=== PATIENT | female | born 1960 | race Caucasian/White ===

== ENCOUNTER 2019-07-31 17:39 | Emergency (ER) | payer MEDICARE ==
[~2019-07-31] VITALS: Ht 165.1 cm; Wt 79.5 kg
--- NOTE | 2019-07-31 18:46 | NUR ---
Pt c/o mild discomfort to throat with swallowing but was able to drink a full glass of water without s/s of difficulty
[2019-07-31 19:06] VITALS: BP 117/83
== END 2019-07-31 19:09 | disposition home or self-care (01) ==
LOC: ER 17:40
DX: R09.89 Other specified symptoms and signs involving the circulatory and respiratory systems (principal); Z88.8 Allergy status to other drugs, medicaments and biological substances
CPT/HCPCS: 71045; 99283

== ENCOUNTER 2019-11-05 04:15 | Emergency (ER) | payer MEDICARE ==
[~2019-11-05] VITALS: Ht 165.1 cm; Wt 84.1 kg
--- NOTE | 2019-11-05 04:17 | NUR ---
patients katy barrera left phone #[phone] for a ride home if needed
[2019-11-05 05:12] LABS: URINE HCG NEGATIVE (NEG)
--- NOTE | 2019-11-05 05:32 | NUR ---
AWAITING UA RESULT. VSS.
[2019-11-05 05:39] LABS: CLARITY,URINE SLIGHTLY CLOUDY (Clear); COLOR,URINE YELLOW (Yellow); GLUCOSE, URINE NEGATIVE (Neg); KETONES,URINE NEGATIVE (Neg); LEUKOCYTE ESTERASE ,URINE NEGATIVE (Neg); NITRITES, URINE POSITIVE (Neg); OCCULT BLOOD,URINE NEGATIVE (Neg); PROTEIN,URINE NEGATIVE (Neg); UROBILINOGEN,URINE 0.2 E.U/dL (0.2-1.0)
[2019-11-05 05:45] LABS: UA COLLECTION TYPE CLN CATCH MIDSTREAM
[2019-11-05 05:47] LABS: BACTERIA,URINE 1+ /HPF (Neg); MUCUS STRANDS NONE SEEN /LPF (Neg); RBC,URINE NONE SEEN /HPF (0-2); SQUAMOUS EPITHELIAL CELL,UR MODERATE /LPF (FEW)
[2019-11-05] MEDS ORDERED: SULF1TAB49 PO (05:47)
--- NOTE | 2019-11-05 05:52 | NUR ---
PT TO BE DISCHARGED, DR. HOOPER TALKING WITH PT. PT WITH STABLE VS.
[2019-11-05 05:54] VITALS: BP 109/86
[2019-11-05] MEDS ORDERED: ondansetron 4mg rapidly disintigrating tab PO ONE (05:55)
== END 2019-11-05 06:02 | disposition home or self-care (01) ==
LOC: ER 04:16
DX: N39.0 Urinary tract infection, site not specified (principal); R10.30 Lower abdominal pain, unspecified; Z88.5 Allergy status to narcotic agent; Z90.49 Acquired absence of other specified parts of digestive tract
CPT/HCPCS: 81001; 81025; 87088; 99283